=== PATIENT | male | born 1995 | race Caucasian/White ===

== ENCOUNTER 2018-01-22 13:53 | Emergency (ER) | payer SELFPAY ==
[2018-01-22] MEDS ORDERED: ACETAMINOPHEN 325 MG TABLET PO ONE (13:56)
--- NOTE | 2018-01-22 14:53 | RADIOLOGY REPORT (SQ) ---
EXAM DESCRIPTION: SHOULDER LEFT 2 OR MORE VIEWS COMPLETED DATE/TIME: 01/22/2018 2:26 pm REASON FOR STUDY: fall COMPARISON: None. NUMBER OF VIEWS: Three views. TECHNIQUE: Internal rotation, external rotation, and Y view images acquired of the left shoulder. LIMITATIONS: None. FINDINGS: MINERALIZATION: Normal. BONES: No acute fracture or dislocation. No worrisome bone lesions. JOINTS: No dislocation. VISUALIZED LUNGS AND RIBS: No pneumothorax. No rib fracture. SOFT TISSUES: No radiopaque foreign body. OTHER: No other significant finding. IMPRESSION: NEGATIVE STUDY OF THE LEFT SHOULDER. NO RADIOGRAPHIC EVIDENCE OF ACUTE INJURY. TECHNICAL DOCUMENTATION: JOB ID: [id number] [employer]- All Rights Reserved Reading location - IP/workstation name: [email or web address]
[2018-01-22 15:02] VITALS: BP 117/81
--- NOTE | 2018-01-22 15:03 | ER Document Report ---
ED Extremity Problem, Upper - General Chief Complaint: Shoulder Injury Stated Complaint: FALL INJURY/SHOULDER PAIN Time Seen by Provider: 01/22/18 14:29 Notes: Patient fell earlier this morning while walking down some steps. He states that he did not initially feel any pain but later on he went to lift some boxes and felt some left shoulder pain. The pain is worse with movement better with rest. It is located in left shoulder and sharp. It is intermittent. It does radiate into his left upper back. He denies any other injuries. TRAVEL OUTSIDE OF THE [place] IN LAST 30 DAYS: No - Related Data Allergies/Adverse Reactions: No Known Allergies Allergy (Verified 01/22/18 13:56) Past Medical History - General Information source: Patient - Social History Smoking Status: Current Every Day Smoker Frequency of alcohol use: None Drug Abuse: None Family History: Reviewed & Not Pertinent, Hyperlipidemia, Hypertension - Immunizations Immunizations up to date: Yes Hx Diphtheria, Pertussis, Tetanus Vaccination: Yes Review of Systems - Review of Systems Constitutional: denies: Chills, Fever Cardiovascular: denies: Chest pain, Palpitations Respiratory: denies: Cough, Short of breath -: Yes All other systems reviewed and negative Physical Exam - Vital signs Vitals: Temp Pulse Resp BP Pulse Ox 98.0 F 92 16 116/80 99 01/22/18 14:10 01/22/18 14:10 01/22/18 14:10 01/22/18 14:10 01/22/18 14:10 Interpretation: Normal - General General appearance: Appears well, Alert - HEENT Head: Normocephalic, Atraumatic Eyes: Normal Pupils: PERRL - Respiratory Respiratory status: No respiratory distress Chest status: Nontender Breath sounds: Normal Chest palpation: Normal - Cardiovascular Rhythm: Regular Heart sounds: Normal auscultation Murmur: No - Abdominal Inspection: Normal Distension: No distension Bowel sounds: Normal Tenderness: Nontender Organomegaly: No organomegaly - Back Back: Normal, Nontender - Extremities General upper extremity: Normal inspection, Tender, Normal color, Normal temperature, Other - Left shoulder is diffusely tender to palpation anteriorly. No obvious deformity. He does hold the shoulder in adduction. He has decreased range of motion to pain.. No: Normal ROM General lower extremity: Normal inspection, Nontender, Normal color, Normal ROM , Normal temperature, Normal weight bearing. No: Chelsi's sign - Neurological Neuro grossly intact: Yes Cognition: Normal Orientation: AAOx4 Renata Coma Scale Eye Opening: Spontaneous [place] Coma Scale Verbal: Oriented Renata Coma Scale Motor: Obeys Commands Renata Coma Scale Total: 15 Speech: Normal Motor strength normal: LUE, RUE, LLE, RLE Sensory: Normal - Psychological Associated symptoms: Normal affect, Normal mood - Skin Skin Temperature: Warm Skin Moisture: Dry Skin Color: Normal Course - Vital Signs Vital signs: Temp Pulse Resp BP Pulse Ox 98.0 F 92 16 116/80 99 01/22/18 14:10 01/22/18 14:10 01/22/18 14:10 01/22/18 14:10 01/22/18 14:10 - Diagnostic Test Radiology reviewed: Image reviewed, Reports reviewed - X-ray shows no evidence of dislocation or fracture0 Discharge - Discharge Clinical Impression: Sprain of left shoulder Qualifiers: Encounter type: initial encounter Shoulder sprain type: unspecified sprain Qualified Code(s): S43.402A - Unspecified sprain of left shoulder joint, initial encounter Condition: Stable Disposition: HOME, SELF-CARE Instructions: Sling as Treatment ([facility]) Prescriptions: Tramadol HCl [Ultram 50 mg Tablet] 50 mg PO Q4HP PRN 4 Days #12 tab PRN Reason: Referrals: GLENROY GUZMAN MD [ACTIVE STAFF] - Follow up in 1 week
== END 2018-01-22 15:10 | disposition home or self-care (01) ==
LOC: ER 13:53
DX: S43.402A Unspecified sprain of left shoulder joint, initial encounter (principal); M25.512 Pain in left shoulder; W10.9XXA Fall (on) (from) unspecified stairs and steps, initial encounter; Y93.89 Activity, other specified; F17.200 Nicotine dependence, unspecified, uncomplicated
CPT/HCPCS: 99283